=== PATIENT | male | born 1945 | race Caucasian/White ===

== ENCOUNTER 2020-05-09 11:10 | Outpatient (CLI) | payer MEDICARE, BC ==
--- NOTE | 2020-05-09 13:36 | MRI ---
MRI Lumbar Spine WO Con History: Lumbar radiculopathy Comparison: None. Findings: Aortic contour is nonaneurysmal. No retroperitoneal periaortic adenopathy. Motion limits evaluation of the kidneys. No marrow infiltrative process. Conus medullaris terminates near the mid L1 vertebral body. Levels are as follows: L1/L2: Small disc bulge. Normal disc height and hydration. No neural foraminal or spinal canal narrow ing. L2/L3: Normal disc height and hydration. Minimal disc bulge. No neural foraminal or spinal canal narr owing. L3/L4: Moderate disc desiccation and height loss. 1 mm retrolisthesis. Moderate circumferential disc osteophyte complex greatest in the right lateral recess. Moderate bilateral neural foraminal narrowing. Mild ventral CSF space effacement with the spinal canal measuring 8 mm. Moderate facet art hrosis. Moderate bilateral neural foraminal narrowing. L4/L5: Prior surgical intervention with 6 and scarred interspinous space. Partial laminectomy of the L4 and L5 spinous processes. Extensive posterior epidural hypointense scar. Spinal canal measures 4 mm. Large circumferential disc bulge along with a left paracentral disc extrusion extending deep to the p osterior longitudinal ligament craniad along the posterior L4 vertebral body. This disc extrusion measures 10 mm in transverse with an AP dimension of 4 mm and a craniocaudal dimension of 3.2 cm. Ext ensive posterior element scar formation. Severe bilateral neural foraminal narrowing with impingement upon both exiting nerve roots and abutment of both traversing L5 and S1 nerve roots. L5/S1: Moderate disc desiccation and height loss. Moderate circumferential disc bulge. Small central annular fissure. Moderate right and mild left neural foraminal narrowing. Moderate hypertrophic facet arthrosis. Impression: Multilevel spondylosis as described with severe neural foraminal narrowing and high-grade spinal canal narrowing at L4/L5.
== END 2020-05-09 11:11 | disposition home or self-care (01) ==
LOC: MRI 11:10
PROVIDERS: ATTEND Neurological Surgery
DX: M47.26 Other spondylosis with radiculopathy, lumbar region (principal); M48.061 Spinal stenosis, lumbar region without neurogenic claudication
CPT/HCPCS: 72148

== ENCOUNTER 2023-05-23 13:02 | Outpatient (CLI) | payer MEDICARE, BC | END 2023-05-23 13:03 | disposition home or self-care (01) | LOC: SCSRAD 13:02 | PROVIDERS: ATTEND Family Medicine | DX: J18.9 Pneumonia, unspecified organism (principal); J98.4 Other disorders of lung | CPT/HCPCS: 71046 ==

== ENCOUNTER 2023-06-06 13:06 | Outpatient (CLI) | payer MEDICARE, BC | END 2023-06-06 13:07 | disposition home or self-care (01) | LOC: SCSRAD 13:06 | PROVIDERS: ATTEND Family Medicine | DX: J18.9 Pneumonia, unspecified organism (principal) | CPT/HCPCS: 71046 ==